=== PATIENT | male | born 1970 | race Caucasian/White ===

== ENCOUNTER → 2017-12-03 | Outpatient (CLI) | payer OTHER ==
--- NOTE | 2017-12-03 12:54 | MR ---
EXAMINATION TYPE: MR knee LT wo con DATE OF EXAM: 12/03/2017 COMPARISON: None HISTORY: Left knee pain TECHNIQUE: Multiplanar, multisequence imaging of the left knee is performed without IV contrast. FINDINGS: There is a focal area of marrow edema or contusion involving the lateral margin of the lateral femur at the level of the articular surface. This could be on the basis of a bone contusion. There does minnie ear to be intrasubstance signal in the anterior horn of the lateral meniscus compatible with tear. Intrasubstance signal is noted within the posterior horn and anterior horn of the medial meniscus. Mu coid degeneration suspected. Simple subtle linear tear not excluded. There is an abnormal appearance of the anterior cruciate ligament compatible with ACL tear. Lateral c ollateral ligament and medial collateral ligament intact. Posterior cruciate ligament intact. Mild hypertrophic changes involving the patella. There is fissuring of the patellar cartilage. Trace amount of fluid in the suprapatellar bursa. Patellar and quadriceps tendons intact. Tiny 7 cm poplite al fossa cyst noted. There is an intraosseous lesion of the posterior femoral condyle. Measures 1.5 cm. [place] to BE most li kenneth indicative of abone infarct. Chondroid lesion not excluded. IMPRESSION: 1. ACL tear with findings suggestive of an anterior horn lateral meniscal tear. Findings involving th e medial meniscus are felt to be more typical of myxoid degeneration although a subtle simple linear tear involving the posterior horn not excluded. 2. There is a area of marrow edema or contusion involving the lateral articular femur with slight def ormity of the cortex on the sagittal image. This likely is posttraumatic. Osteochondritis in the diff erential diagnosis as well as microtrabecular fracture. Correlate clinically. 3. 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 4. There is an intraosseous lesion of the posterior medial femoral condyle. Measures 1.5 cm. [place] to BE most likely indicative of abone infarct. Chondroid lesion not excluded. Correlate with x-ray.
== END | disposition home or self-care (01) ==
LOC: RADMRIMAIN 12:08
PROVIDERS: ATTEND Family Medicine
DX: S83.512A Sprain of anterior cruciate ligament of left knee, initial encounter (principal); M22.42 Chondromalacia patellae, left knee

== ENCOUNTER → 2018-06-12 | Outpatient (CLI) | payer OTHER ==
--- NOTE | 2018-06-12 15:33 | XR ---
Thoracic spine HISTORY: Abnormal chest x-ray 2 views of the chest. No comparisons Multilevel spondylosis is present. Thoracic vertebral bodies show preserved height, alignment, and peter ne mineralization. No paraspinal mass. Disc spaces are maintained. IMPRESSION: Thoracic spondylosis.
== END | disposition home or self-care (01) ==
LOC: RADXRMAIN 11:36
PROVIDERS: ATTEND Family Medicine
DX: M47.814 Spondylosis without myelopathy or radiculopathy, thoracic region (principal)
CPT/HCPCS: 72070

== ENCOUNTER → 2020-01-19 | Outpatient (CLI) | payer OTHER ==
--- NOTE | 2020-01-19 17:09 | CT ---
EXAMINATION TYPE: CT brain yg wilson con DATE OF EXAM: 01/19/2020 COMPARISON: None HISTORY: headache behind right ear for [address] DLP: 1047 mGycm Automated exposure control for dose reduction was used. TECHNIQUE: CT scan of the head and cervical spine are performed without contrast. FINDINGS: There is no acute intracranial hemorrhage, mass effect, or midline shift identified. The ventricles and sulci are within normal limits in size. The globes are intact and the visualized sin uses are clear. Cervical spine is visualized in its entirety from C1 through upper thoracic levels and demonstrates s atisfactory alignment without evidence of acute fracture or dislocation. Degenerative disc changes a re present, there is multilevel spondylosis present. Loss of disc height present at intervertebral le vels C4-5, C5-6 and C6-7. Multilevel foraminal encroachment. Prevertebral soft tissue appears within normal limits. The C1-C2 articulation is unremarkable. IMPRESSION: 1. There is no acute fracture or dislocation evident in the cervical spine. 2. No acute intracranial hemorrhage, mass effect, or midline shift is seen.
== END | disposition home or self-care (01) ==
LOC: RADCTMAIN 16:04
PROVIDERS: ATTEND Family Medicine
DX: M54.2 Cervicalgia (principal)
CPT/HCPCS: 70450; 72125

== ENCOUNTER 2021-01-19 10:35 | Day surgery (SDC) | payer OTHER ==
[2021-01-16 14:28] VITALS: BMI 27.4
[2021-01-19 11:34] VITALS: TEMP 97.7
[2021-01-19] MEDS: LACTATED RINGERS 1,000 ML IV SCH ×2 (11:44→12:39)
[2021-01-19] MEDS ORDERED: PROPOFOL 10 MG/ML 20 ML VIAL IV ONE (12:37)
[2021-01-19] MEDS ORDERED: LIDOCAINE 1% INJ 10MG/ML (20 ML MDV) ONE (12:37)
--- NOTE | 2021-01-19 12:57 | P.PCN ---
Date of Procedure: 01/19/21 Procedure(s) Performed: BRIEF HISTORY: Patient is a 50-year-old pleasant male scheduled for an elective colonoscopy as a part of screening for colorectal neoplasia PROCEDURE PERFORMED: Colonoscopy. PREOPERATIVE DIAGNOSIS: Screening for colon cancer. IV sedation per Anesthesia. PROCEDURE: After informed consent was obtained, the patient, was brought into the endoscopy unit. IV sedation was administered by Anesthesia under continuous monitoring. Digital rectal examination was normal. Initially the Olympus CF-160 flexible video colonoscope was then inserted in the rectum, gradually advanced into the cecum without any difficulty. Careful examination was performed as the scope was gradually being withdrawn. Ileocecal valve and the appendiceal orifice were visualized and appeared normal. Prep was fair.. Mucosa of the cecum, ascending colon, transverse colon, descending colon, sigmoid colon, and rectum appeared normal. Retroflexion was performed in the rectum and no lesions were seen. The patient tolerated the procedure well. IMPRESSION: Normal-appearing colon from rectum to cecum no evidence of colorectal neoplasia. RECOMMENDATIONS: Findings of this examination were discussed with the patient as well as his family. He was advised to have a repeat screening colonoscopy in 10 years. 50
[2021-01-19 13:02] VITALS: RESP 16
[2021-01-19 13:16] VITALS: BP 108/63; PULSE 67
== END 2021-01-19 13:35 | disposition home or self-care (01) ==
LOC: ORWHC2ENDO 10:35
PROVIDERS: ATTEND Internal Medicine Gastroenterology
DX: Z12.11 Encounter for screening for malignant neoplasm of colon (principal); I10 Essential (primary) hypertension; F17.200 Nicotine dependence, unspecified, uncomplicated; Z79.82 Long term (current) use of aspirin; Z91.040 Latex allergy status
CPT/HCPCS: G0121; J2001; J2704

== ENCOUNTER → 2021-11-11 | Outpatient (CLI) | payer OTHER ==
--- NOTE | 2021-11-11 20:46 | MR ---
EXAMINATION TYPE: MR knee LT wo con DATE OF EXAM: 11/11/2021 COMPARISON: MRI left knee December 03, 2017 HISTORY: Left knee pain, medial aspect, fell off ladder 3 yrs ago. TECHNIQUE: Multiplanar, multisequence imaging of the left knee is performed without IV contrast. FINDINGS: MEDIAL MENISCUS: Medial extrusion of medial meniscus on coronal images with abnormal increased signal . New marked blunting of the medial meniscus with abnormal signal central body and posterior horn con sistent with complex full-thickness tear. LATERAL MENISCUS: Anterior and posterior horns are intact without tear. CRUCIATE LIGAMENTS: The posterior cruciate ligament remains intact and unremarkable. Complete tear of the anterior cruciate ligament redemonstrated COLLATERAL LIGAMENTS: The medial collateral ligament and lateral collateral ligament complex are inta ct. Medial bulging medial meniscus on coronal images with surrounding fluid signal. EXTENSOR MECHANISM: Visualized quadriceps and patellar tendons are intact. EFFUSION: Moderate size suprapatellar joint effusion slightly larger versus prior. POPLITEAL CYST: No popliteal/matson cyst. TRICOMPARTMENT SPACES: Mild to moderate tricompartment joint space loss and mild spurring redemonstra huma. CARTILAGE: Some fissuring and cartilaginous loss along the posterior patellar pole consistent with ch ondromalacia patella redemonstrated. BONE MARROW SIGNAL: Posterior distal medial femoral condyle shows serpiginous low T1 and increased T2 signal similar to prior. OTHER: No additional significant abnormality is appreciated. IMPRESSION: 1. New complex full-thickness medial meniscal tear involving the central body and posterior horn. 2. Moderate-sized suprapatellar joint effusion slightly increased from prior. 3. New mild MCL sprain injury. 4. Chronic ACL tear redemonstrated. 5. Stable tricompartment degenerative changes greatest patellofemoral compartment as detailed above. 6. 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
== END | disposition home or self-care (01) ==
LOC: RADMRIMAIN 12:00
PROVIDERS: ATTEND Family Medicine
DX: M17.12 Unilateral primary osteoarthritis, left knee (principal); M23.322 Other meniscus derangements, posterior horn of medial meniscus, left knee; Z87.828 Personal history of other (healed) physical injury and trauma

== ENCOUNTER → 2022-05-16 | Outpatient (CLI) | payer OTHER ==
--- NOTE | 2022-05-16 10:40 | CT ---
EXAMINATION TYPE: CT brain wo con DATE OF EXAM: 05/16/2022 COMPARISON: 01/19/2020 HISTORY: LT ear tinnitus, intermittent headache CT DLP: 1236 mGycm Automated exposure control for dose reduction was used. FINDINGS: There is no acute intracranial hemorrhage, mass effect, or midline shift identified. The ventricles a nd sulci are within normal limits in size. The globes are intact and the visualized sinuses are clear . IMPRESSION: NO ACUTE HEMORRHAGE OR MASS EFFECT.
== END | disposition home or self-care (01) ==
LOC: RADCTMAIN 10:04
PROVIDERS: ATTEND Family Medicine
DX: H93.12 Tinnitus, left ear (principal); R51.9 Headache, unspecified
CPT/HCPCS: 70450

== ENCOUNTER → 2022-12-03 | Outpatient (CLI) | payer OTHER ==
--- NOTE | 2022-12-03 12:13 | XR ---
EXAMINATION TYPE: XR chest 2V DATE OF EXAM: 12/03/2022 COMPARISON: 01/18/2014 TECHNIQUE: PA and lateral views submitted. HISTORY: Routine checkup FINDINGS: The lungs are clear and there is no pneumothorax, pleural effusion, or focal pneumonia. Heart size normal and no overt failure. Osseous structures demonstrate hypertrophic and degenerative changes of the spine. AC joint arthropathy. IMPRESSION: 1. No acute process.
== END | disposition home or self-care (01) ==
LOC: RADXRMAIN 11:50
PROVIDERS: ATTEND Family Medicine
DX: Z00.00 Encounter for general adult medical examination without abnormal findings (principal); I10 Essential (primary) hypertension; Z72.0 Tobacco use
CPT/HCPCS: 71046

== ENCOUNTER → 2024-01-01 | Outpatient (CLI) | payer OTHER ==
--- NOTE | 2024-01-01 11:08 | CTL ---
EXAMINATION TYPE: CT Low Dose Lung DATE OF EXAM ORDERED: 01/01/2024 History: Lung cancer screening CT DLP: 73.[address] CTDI: 2.3 mGy Automated exposure control for dose reduction was used. Comparison: None TECHNIQUE: Low dose computed tomography scan was performed through the chest at 1 mm thick sections and reconstructed images in multiple planes at 1 mm and [address] DIAGNOSTIC QUALITY: Satisfactory FINDINGS: There is no suspicious lung mass or nodule The lungs are clear and there is no abnormal consolidation or interstitial density. There is no mediastinal, hilar or axillary adenopathy. There is no pleural effusion, pleural thickening or pneumothorax. No focal osseous lesions are seen. Limited scans the upper abdomen reveals no gross adenopathy. IMPRESSION: 1. BI-RADS Category 1 negative. Continue routine screening at yearly intervals. 2. No acute cardiopulmonary disease. [facility], , 01/01/2024 11:06 AM
== END | disposition home or self-care (01) ==
LOC: RADCTMAIN 09:51
PROVIDERS: ATTEND Family Medicine
DX: Z12.2 Encounter for screening for malignant neoplasm of respiratory organs
CPT/HCPCS: 71271